=== PATIENT | male | born 1950 | race Caucasian/White ===

== ENCOUNTER 2021-01-18 20:32 | Emergency (ER) | payer OTHER ==
[~2021-01-18] VITALS: Ht 167.6 cm; Wt 86.2 kg
[2021-01-18] MEDS ORDERED: PEPCID AC20 MG (21:13)
[2021-01-18] MEDS ORDERED: INDAPAMIDE2.5 MG (21:13)
[2021-01-18] MEDS ORDERED: ASPIRIN81 MG (21:13)
[2021-01-18] MEDS ORDERED: COMADIN (21:14)
[2021-01-18] MEDS ORDERED: CONEX TABLET1 EACH (21:14)
== END 2021-01-18 22:24 | disposition home or self-care (01) ==
LOC: ER 20:32
DX: R04.0 Epistaxis (principal)